=== PATIENT | female | born 1975 | race Caucasian/White ===

== ENCOUNTER → 2016-11-17 | Outpatient (CLI) | payer OTHER | LOC: BMCIMAGING 14:52 | PROVIDERS: ATTEND Physician Assistant Medical | DX: J40 Bronchitis, not specified as acute or chronic (principal) ==

== ENCOUNTER → 2017-03-29 | Outpatient (CLI) | payer OTHER | LOC: CIMAGING 13:23 | PROVIDERS: ATTEND Internal Medicine Interventional Cardiology | DX: Z13.6 Encounter for screening for cardiovascular disorders (principal); Z82.49 Family history of ischemic heart disease and other diseases of the circulatory system; Z87.891 Personal history of nicotine dependence | CPT/HCPCS: 75571-PO ==

== ENCOUNTER 2018-11-08 21:06 | Emergency (ER) | payer OTHER ==
--- NOTE | 2018-11-08 21:37 | EDPHY ---
H & P Stated Complaint: N/V/ left sided abd pain since Wednesday Time Seen by Provider: 11/08/18 21:36 HPI/ROS: CHIEF COMPLAINT: Nausea, vomiting, and abdominal pain HISTORY OF PRESENT ILLNESS: This is a 43-year-old female with a history of IgG deficiency, undifferentiated autoimmune disease, coronary artery disease, pancreatitis, and reactive airway disease. She presents today after 5 days of nausea, vomiting, and abdominal pain. She describes the pain as a burning sensation. She is experiencing at in the midepigastrium in the left upper quadrant primarily. She is at the point where she can keep almost nothing down. She has a history of constipation and has not had a bowel movement since Wednesday. She had a small bowel movement on Wednesday, no blood. She has not had diarrhea. She is passing a small amount of flatus. Urine output is decreased; she denies dysuria, urgency or frequency. She notes that she has had waves of heat and flushing and also some chills. REVIEW OF SYSTEMS: A ten system review of systems was performed and is negative with the exception of the items mentioned in the HPI. Past medical history: 1. IgG deficiency 2. Undifferentiated autoimmune disorder 3. Coronary artery disease 4. Reactive airway disease 5. Pancreatitis Social history: She lives with her father. She is disabled. No tobacco use. General Appearance: Alert. Vital signs reviewed. Blood pressure 162/90 at triage. Eyes: Pupils equal and round, no conjunctival injection, no discharge. Anicteric. ENT, Mouth: Mucous membranes are dry, no oropharyngeal erythema or edema. Neck: No lymphadenopathy, supple. Respiratory: Lungs are clear to auscultation; no wheezes, rales, or rhonchi. Cardiovascular: Regular rate and rhythm; no murmur, rub, or gallop. Gastrointestinal: Abdomen is soft and tender in the midepigastrium in the left upper quadrant, no guarding, no masses or organomegaly, bowel sounds normal. Skin: Warm and dry, no rashes on exposed skin, normal color. Back: Nontender to palpation over the thoracolumbar spine. No CVAT. Extremities: No lower extremity edema, no calf tenderness or swelling. Neurological: Alert and oriented. Moving all four extremities easily and equally. - Personal History LMP (Females 10-55): 15-21 Days Ago Current Tetanus/Diphtheria Vaccine: Yes - Medical/Surgical History Hx Asthma: No Hx Chronic Respiratory Disease: No Hx Diabetes: No Hx Cardiac Disease: Yes Hx Renal Disease: No Hx Cirrhosis: No Hx Alcoholism: No Hx HIV/AIDS: No Hx Splenectomy or Spleen Trauma: No Other PMH: autoimmune disease, CAD, IGG deficient - Social History Smoking Status: Smoker current status UNK Constitutional: Initial Vital Signs Temperature (C) 37.3 C 11/08/18 21:08 Heart Rate 82 11/08/18 21:08 Respiratory Rate 18 11/08/18 21:08 Blood Pressure 162/90 H 11/08/18 21:08 O2 Sat (%) 97 11/08/18 21:08 O2 Delivery Mode Room Air Allergies/Adverse Reactions: amoxicillin trihydrate [From Augmentin] Allergy (Mild, Verified 11/10/18 04:56) Rash potassium clavula *RETIRED-05/09/12 [From Augmentin] Allergy (Mild, Verified 04:56) Rash droperidol [From Inapsine] Allergy (Unknown, Verified 11/10/18 04:56) Anxiety prochlorperazine edisylate [From Compazine] Allergy (Unknown, Verified 11/10/18 04:56) Anxiety prochlorperazine maleate [From Compazine] Allergy (Unknown, Verified 11/10/18 04 :56) Anxiety trimethobenzamide HCl [From Tigan] Allergy (Unknown, Verified 11/10/18 04:56) Unknown Penicillins Allergy (Verified 11/10/18 04:56) Home Medications: Medication Instructions Recorded Atorvastatin Calcium [Lipitor 10 10 mg PO DAILY 02/12/12 mg (RX)] Albuterol [Proventil Inhaler HFA 2 puffs IH Q4H PRN 11/08/18 (*)] Escitalopram Oxalate [Lexapro] 10 mg PO DAILY 11/08/18 Fenofibrate 54 mg PO DAILY 11/08/18 Fluticasone Hfa 44 Mcg [Flovent 44 2 puffs IH BID 11/08/18 MCG Hfa MDI (*)] Thyroid,Pork [[place] Thyroid] 30 mg PO DAILY 11/08/18 Methadone HCl [Methadone HCl 10 mg 10 - 20 mg PO BID 11/10/18 (*)] Oxymetazoline HCl [Nasal 1 - 2 sprays NS DAILY PRN 11/10/18 Decongestant] Medical Decision Making ED Course/Re-evaluation: 43-year-old female, immune suppressed, who presents with 5 days of nausea, vomiting, and abdominal pain. No peritoneal signs on abdominal exam. She is not febrile, tachycardic, or hypotensive. In fact her blood pressure is elevated at 160 2/90 in triage. She has been able to take her methadone under thyroid medication. She has not taken other medications. Will check blood work including CBC, chemistries, LFTs, and lipase. IV normal saline administered. Patient re-evaluated at 10:30 p.m.. She under 2nd L of IV fluid. She has had Zofran in the past. She is on methadone head and over QT prolongation. She tells me she did not have problems with that in the past and after discussing this with her I have decided to place her on a threat monitoring analyst and give her 4 mg IV Zofran. I reviewed her blood work. Platelets are slightly low (they have been in the past). Otherwise her blood work is normal including liver function and lipase. I do not suspect pancreatitis or cholecystitis. I do not suspect SBO--she is passing flatus. She has not vomited since early this morning, but has not tried to eat anything today. Patient re-evaluated at 11:15 p.m.. She has not had any vomiting. She feels much better. She has tolerated ice chips. She will be discharged home in improved condition. Danger signs reviewed with her. Differential Diagnosis: Considered a differential diagnosis that includes but is not limited to pancreatitis, cholecystitis, appendicitis, gastritis. - Data Points Laboratory Results: Laboratory Results 11/08/18 22:01 11/08/18 22:01 Medications Given: Discontinued Medications Sodium Chloride (Ns) 1,000 mls @ 0 mls/hr IV EDNOW ONE; Wide Open PRN Reason: Protocol Stop: 11/08/18 21:49 Last Admin: 11/08/18 22:01 Dose: 1,000 mls Sodium Chloride (Ns) 1,000 mls @ 0 mls/hr IV EDNOW ONE; Wide Open PRN Reason: Protocol Stop: 11/08/18 22:00 Last Admin: 11/08/18 22:08 Dose: 1,000 mls Ondansetron HCl (Zofran) 4 mg IVP EDNOW ONE Stop: 11/08/18 22:43 Last Admin: 11/08/18 22:44 Dose: 4 mg Ondansetron HCl (Zofran) 4 mg IVP EDNOW ONE Stop: 11/08/18 22:43 Last Admin: 11/08/18 22:44 Dose: Not Given Departure - Departure Disposition: Home, Routine, Self-Care Clinical Impression: Abdominal pain, Vomiting Condition: Good Instructions: Acute Nausea and Vomiting (ED), Acute Abdominal Pain (ED) Referrals: Birttney Cobos MD [Primary Care Provider] - As per Instructions
[2018-11-08] MEDS ORDERED: NS 1,000 ML IV ONE ×2 (21:48→21:59)
[2018-11-08 22:14] LABS: PLATELET COUNT 146 10^3/uL (150-400)
[2018-11-08] MEDS ORDERED: ONDANSETRON 4 MG/2 ML VIAL ONE (22:41)
[2018-11-08] MEDS ORDERED: ONDANSETRON 4 MG/2 ML VIAL IVP ONE ×2 (22:42)
[2018-11-08 22:57] VITALS: BP 121/80
== END 2018-11-08 23:33 | disposition home or self-care (01) ==
DX: R10.9 Unspecified abdominal pain (principal); R11.2 Nausea with vomiting, unspecified; E86.9 Volume depletion, unspecified
CPT/HCPCS: 96374; J2405

== ENCOUNTER 2018-11-10 04:49 | Inpatient (IN) | payer OTHER ==
[2018-11-10] MEDS ORDERED: NS 1,000 ML IV ONE ×2 (05:01)
[2018-11-10] MEDS ORDERED: FAMOTIDINE 20 MG/2 ML SDV IVP ONE (05:04)
--- NOTE | 2018-11-10 05:06 | EDPHY ---
H & P Stated Complaint: n/v/, dehydrated, recently seen, can't eat/drink, dizzy Time Seen by Provider: 11/10/18 05:05 HPI/ROS: HPI CHIEF COMPLAINT: Nausea, vomiting, abdominal pain, recent ER visit HISTORY OF PRESENT ILLNESS: Patient is a 43-year-old female significant mass medical history for IgG deficiency, presents emergency room nausea and abdominal pain. She was seen here few days ago with nausea vomiting abdominal pain at that time she had rather unremarkable workup and felt better after fluids and nausea medicine. She states since being discharged she really has not had anything to eat or drink. She has been lying in bed. States she has been sleeping developing ongoing abdominal pain she complains of left-sided mid and lower abdominal pain. She denies any diarrhea, denies chest pain or shortness of breath. States she has ongoing nausea without vomiting. Sometimes dry heaves. Patient reports she is unable to tolerate anything by mouth as she gets nauseous and vomits. She is not having to eat or drink she reports 24 hr. Past Medical History: Significant past medical history for IgG deficiency, autoimmune disorder nonspecific, coronary artery disease, reactive airway disease, pancreatitis Past Surgical History: Has had multiple abdominal surgeries including gangrenous cholecystitis leading to septic shock, hepatic abscesses, multiple exploratory laparotomies Social History: Denies drugs alcohol tobacco. Unemployed. Family History: Noncontributory ROS REVIEW OF SYSTEMS: 10 Systems were reviewed and negative with the exception of the elements mentioned in the history of present illness. Exam Constitutional triage nursing summary reviewed, vital signs reviewed, awake/ alert. Vital signs stable. Eyes normal conjunctivae and sclera, EOMI, PERRLA. HENT normal inspection, atraumatic, moist mucus membranes, no epistaxis, neck supple/ no meningismus, no raccoon eyes. Respiratory clear to auscultation bilaterally, normal breath sounds, no respiratory distress, no wheezing. Cardiovascular rate normal, regular rhythm, no murmur, no edema, distal pulses normal. Gastrointestinal mild tender palpation left lower quadrant, left mid abdomen, no peritoneal signs, no rebound, no guarding, normal bowel sounds, no distension , no pulsatile mass. Genitourinary no CVA tenderness. Musculoskeletal no midline vertebral tenderness, full range of motion, no calf swelling, no tenderness of extremities, no meningismus, good pulses, neurovascularly intact. Skin pink, warm, & dry, no rash, skin atraumatic. Neurologic awake, alert and oriented x 3, AAOx3, moves all 4 extremities equally, motor intact, sensory intact, CN II-XII intact, normal cerebellar, normal vision, normal speech. Psychiatric normal mood/affect. Heme/Lymph/Immune no lymphadenopathy. Differential Diagnosis: Differential diagnosis includes but is not limited to and in no particular order: Bowel obstruction, appendicitis, gallbladder disease, diverticulitis, colitis, enteritis, perforated viscus, gastritis, GERD , esophagitis, urinary tract infection, pyelonephritis, kidney stones Medical Decision Making: Plan for this patient IV establishment IV fluid bolus , IV Pepcid for GI upset, basic labs, CT scan abdomen pelvis with IV contrast to help delineate her left-sided abdominal pain. Re-evaluation: 0641: Patient back from CT at this time. She has IV fluids. IV Pepcid and IV Ativan 0.5 mg for nausea. I did give her a 1 g of Tylenol for pain control however she declined this. Back from CT I have ordered her IV fentanyl 50 mcg for further pain control. Awaiting CT results. Labs reviewed. They are reassuring. However pending on CT results. Patient received IV fentanyl for pain control. She has left-sided abdominal pain. Will re-evaluate. CT scan abdomen pelvis with IV contrast CT scan results faxed to me by [facility] time 7:03 a.m., this shows no evidence of bowel obstruction no evidence of pneumoperitoneum unchanged splenomegaly Presumed hernia repair material in the anterior abdominal wall moderate colonic stool burden may reflect mild constipation nonobstructing renal stones Otherwise unremarkable CT scan results please see full report from [facility]. 0731: I did update the patient about her lab work and CT results. She is asking for more pain medicine I wrote her another 50 mcg IV fentanyl, also complaining of nausea I have written her 6.25 mg IV Phenergan and 25 mg IV Benadryl as she states that she can take Phenergan but needs Benadryl with it. She has already received 2 L of fluid. Plan for hospital admission for ongoing nausea, abdominal pain. It is possible abdominal pain is from constipation. She has agreed for hospital admission and would prefer this. I did update her, her and father at bedside about off her test results of labs. They are comfortable being admitted. Consult the hospitalist service Dr. Dempsey Who agrees to admit. UA Pending still. 0800AM: Patient re-evalauted after IV fluids, pain medication IV fentanyl, Iv Phenergan, benadryl, and is feeling much better. She denies CP or SOB. Denies Abdominal pain at this time. Abdomen is soft nt. Nd. Not vomiting. She is comfortable at this time. Updated on plan for admission. she agrees for admission. Source: Patient - Personal History LMP (Females 10-55): Irregular Current Tetanus Diphtheria and Acellular Pertussis (TDAP): Yes - Medical/Surgical History Hx Asthma: No Hx Chronic Respiratory Disease: No Hx Diabetes: No Hx Cardiac Disease: Yes Hx Renal Disease: No Hx Cirrhosis: No Hx Alcoholism: No Hx HIV/AIDS: No Hx Splenectomy or Spleen Trauma: No Other PMH: autoimmune disease, CAD, IGG deficient - Social History Smoking Status: Smoker current status UNK Constitutional: Initial Vital Signs Temperature (C) 37.1 C 11/10/18 04:54 Heart Rate 83 11/10/18 04:54 Respiratory Rate 16 11/10/18 04:54 Blood Pressure 113/75 11/10/18 04:54 O2 Sat (%) 100 11/10/18 04:54 O2 Delivery Mode Nasal Cannula O2 (L/minute) 2 Allergies/Adverse Reactions: sesame oil [Sesame] Allergy (Intermediate, Verified 11/10/18 18:48) GI upset wheat Allergy (Intermediate, Verified 11/10/18 18:48) GI upset almond Allergy (Mild, Verified 11/10/18 18:48) GI upset amoxicillin trihydrate [From Augmentin] Allergy (Mild, Verified 11/10/18 04:56) Rash corn Allergy (Mild, Verified 11/10/18 18:48) GI upset peanut Allergy (Mild, Verified 11/10/18 16:55) GI upset potassium clavula *RETIRED-05/09/12 [From Augmentin] Allergy (Mild, Verified 04:56) Rash soy Allergy (Mild, Verified 11/10/18 18:48) GI upset droperidol [From Inapsine] Allergy (Unknown, Verified 11/10/18 04:56) Anxiety prochlorperazine edisylate [From Compazine] Allergy (Unknown, Verified 11/10/18 04:56) Anxiety prochlorperazine maleate [From Compazine] Allergy (Unknown, Verified 11/10/18 04 :56) Anxiety trimethobenzamide HCl [From Tigan] Allergy (Unknown, Verified 11/10/18 04:56) Unknown Penicillins Allergy (Verified 11/10/18 04:56) Home Medications: Medication Instructions Recorded Atorvastatin Calcium [Lipitor 10 10 mg PO DAILY 02/12/12 mg (*)] Albuterol [Proventil Inhaler HFA 2 puffs IH Q4H PRN 11/08/18 (*)] Escitalopram Oxalate [Lexapro 10 10 mg PO DAILY 11/08/18 MG] Fenofibrate 54 mg PO DAILY 11/08/18 Fluticasone Hfa 44 Mcg [Flovent 44 2 puffs IH BID 11/08/18 MCG Hfa MDI (*)] Thyroid,Pork [[place] Thyroid] 30 mg PO DAILY 11/08/18 Methadone HCl [Methadone HCl 10 mg 10 - 20 mg PO BID 11/10/18 (*)] Oxymetazoline HCl [Nasal 1 - 2 sprays NS DAILY PRN 11/10/18 Decongestant] Polyethylene Glycol 3350 [Miralax 17 gm PO BID pkt 11/15/18 17 gm (*)] Promethazine HCl [Phenergan 25mg 6.25 - 12.5 mg PO Q6HRS PRN #12 tab 11/15/18 (*)] Promethazine HCl [Phenergan Rectal] 25 mg NM Q6HRS PRN #30 suppr 11/15/18 Medical Decision Making - Data Points Laboratory Results: Laboratory Results 11/11/18 05:50 11/11/18 05:50 Medications Given: Discontinued Medications Acetaminophen (Tylenol) 1,000 mg PO EDNOW ONE Stop: 11/10/18 06:02 Last Admin: 11/10/18 06:43 Dose: Not Given Atorvastatin Calcium (Lipitor) 10 mg PO DAILY BETTYE Stop: 05/11/19 08:59 Last Admin: 11/15/18 10:58 Dose: 10 mg Bisacodyl (Dulcolax Rectal) 10 mg NM DAILY PRN; Protocol PRN Reason: Constipation Stop: 05/10/19 12:26 Last Admin: 11/11/18 13:06 Dose: 10 mg Diphenhydramine HCl (Benadryl Injection) 25 mg IVP EDNOW ONE Stop: 11/10/18 07:29 Last Admin: 11/10/18 07:36 Dose: 25 mg Diphenhydramine HCl (Benadryl Injection) 6.25 mg IVP Q6H PRN PRN Reason: ALLERGIC REACTION Stop: 05/09/19 18:49 Last Admin: 11/14/18 18:08 Dose: 6.25 mg Enoxaparin Sodium (Lovenox) 40 mg SC DAILY [facility] Stop: 05/10/19 08:59 Last Admin: 11/15/18 10:58 Dose: 40 mg Escitalopram Oxalate (Lexapro) 10 mg PO DAILY [facility] Stop: 05/11/19 08:59 Last Admin: 11/15/18 10:58 Dose: 10 mg Famotidine (Pepcid) 20 mg IVP EDNOW ONE Stop: 11/10/18 05:05 Last Admin: 11/10/18 05:44 Dose: 20 mg Fenofibrate (Tricor) 48 mg PO DAILY [facility] Stop: 05/11/19 08:59 Last Admin: 11/15/18 10:58 Dose: 48 mg Fentanyl (Sublimaze) 50 mcg IVP EDNOW ONE Stop: 11/10/18 06:39 Last Admin: 11/10/18 06:42 Dose: 50 mcg Fentanyl (Sublimaze) 50 mcg IVP EDNOW ONE Stop: 11/10/18 07:28 Last Admin: 11/10/18 07:39 Dose: 50 mcg Fluticasone Propionate (Flovent Hfa) 2 puffs IH BID [facility] Stop: 05/10/19 20:59 Last Admin: 11/15/18 08:36 Dose: 2 puffs Hydromorphone HCl (Dilaudid) 0.4 - 0.6 mg IVP Q4HRS PRN PRN Reason: Pain, Severe Stop: 11/21/18 12:31 Last Admin: 11/13/18 05:05 Dose: 0.4 mg Hydromorphone HCl (Dilaudid) 2 - 4 mg PO Q4HRS PRN PRN Reason: Pain, Moderate Stop: 11/22/18 11:42 Last Admin: 11/15/18 11:04 Dose: 4 mg Sodium Chloride (Ns) 1,000 mls @ 0 mls/hr IV EDNOW ONE; Wide Open PRN Reason: Protocol Stop: 11/10/18 05:02 Last Admin: 11/10/18 05:45 Dose: 1,000 mls Sodium Chloride (Ns) 1,000 mls @ 0 mls/hr IV EDNOW ONE; Wide Open PRN Reason: Protocol Stop: 11/10/18 05:02 Last Admin: 11/10/18 05:45 Dose: 1,000 mls Sodium Chloride (Ns) 1,000 mls @ 75 mls/hr IV CONT BETTYE Stop: 05/09/19 09:59 Last Admin: 11/12/18 02:08 Dose: 1,000 mls Magnesium Sulfate (Magnesium Sulf 2 Gm (Premix)) 50 mls @ 50 mls/hr IV ONCE ONE Stop: 11/11/18 13:32 Last Admin: 11/11/18 13:18 Dose: 50 mls Lorazepam (Ativan Injection) 0.5 mg IVP EDNOW ONE Stop: 11/10/18 06:03 Last Admin: 11/10/18 06:05 Dose: 0.5 mg Magnesium Hydroxide (Milk Of Magnesia) 30 ml PO DAILY PRN; Protocol PRN Reason: Constipation Stop: 05/10/19 12:26 Last Admin: 11/11/18 13:06 Dose: 30 ml Magnesium Hydroxide (Milk Of Magnesia) 30 ml PO BID BETTYE PRN Reason: Protocol Stop: 05/11/19 20:59 Last Admin: 11/15/18 10:58 Dose: 30 ml Methadone HCl (Methadone Hcl) 10 - 20 mg PO BID BETTYE Stop: 11/21/18 12:59 Last Admin: 11/12/18 09:31 Dose: 10 mg Methadone HCl (Methadone Hcl) 20 mg PO BID BETTYE Stop: 11/21/18 12:59 Last Admin: 11/15/18 10:58 Dose: 20 mg Morphine Sulfate (Morphine) 1 - 2 mg IVP Q1HR PRN PRN Reason: Pain, Breakthrough Stop: 11/20/18 09:51 Last Admin: 11/11/18 10:36 Dose: 2 mg Ondansetron HCl (Zofran) 4 mg IVP Q4HRS PRN PRN Reason: Nausea/Vomiting Stop: 05/09/19 09:51 Last Admin: 11/14/18 03:51 Dose: 4 mg Ondansetron HCl (Zofran Odt) 4 mg PO Q4HRS PRN PRN Reason: Nausea/Vomiting, Use 1st Stop: 05/09/19 09:51 Last Admin: 11/15/18 10:40 Dose: 4 mg Pantoprazole Sodium (Protonix) 40 mg IVP BID [facility] Stop: 05/10/19 12:44 Last Admin: 11/14/18 09:22 Dose: 40 mg Pantoprazole Sodium (Protonix) 40 mg PO BID [facility] Stop: 05/13/19 20:59 Last Admin: 11/15/18 10:59 Dose: 40 mg Polyethylene Glycol (Miralax) 17 gm PO DAILY PRN; Protocol PRN Reason: Constipation, patient prefers Stop: 05/10/19 12:26 Last Admin: 11/11/18 13:06 Dose: 17 gm Polyethylene Glycol (Miralax) 17 gm PO BID [facility] PRN Reason: Protocol Stop: 05/13/19 15:54 Last Admin: 11/15/18 10:57 Dose: 17 gm Promethazine HCl (Phenergan) 6.25 mg IVP ONCE ONE Stop: 11/10/18 07:29 Last Admin: 11/10/18 07:37 Dose: 6.25 mg Promethazine HCl (Phenergan) 6.25 - 12.5 mg IVP Q6HRS PRN PRN Reason: Nausea/Vomiting, Use 2nd Stop: 05/09/19 09:51 Last Admin: 11/14/18 17:50 Dose: 12.5 mg Promethazine HCl (Phenergan) 6.25 - 12.5 mg PO Q6HRS PRN PRN Reason: Nausea/Vomiting, Use 1st Stop: 05/11/19 11:44 Last Admin: 11/15/18 09:49 Dose: 12.5 mg Senna/Docusate Sodium (Senokot-S) 1 - 2 tab PO BID [facility] PRN Reason: Protocol Stop: 05/10/19 20:59 Last Admin: 11/15/18 10:57 Dose: 2 tab Sucralfate (Carafate Suspension) 1 gm PO ACHS [facility] Stop: 05/12/19 20:59 Last Admin: 11/15/18 10:58 Dose: 1 gm Throat Lozenges (Cepacol Lozenge) 1 ea PO Q2 PRN PRN Reason: Sore Throat Stop: 05/09/19 23:29 Last Admin: 11/10/18 23:45 Dose: 1 ea Thyroid ([place] Thyroid) 30 mg PO DAILY06 BETTYE Stop: 05/11/19 05:59 Last Admin: 11/15/18 06:27 Dose: 30 mg Departure - Departure Disposition: [facility] Acute Clinical Impression: Abdominal pain Qualifiers: Abdominal location: left lower quadrant Qualified Code(s): R10.32 - Left lower quadrant pain Vomiting Qualifiers: Vomiting type: unspecified Vomiting Intractability: non-intractable Nausea presence: with nausea Qualified Code(s): R11.2 - Nausea with vomiting, unspecified Condition: Good
[2018-11-10 05:54] LABS: PLATELET COUNT 116 10^3/uL (150-400)
[2018-11-10] MEDS ORDERED: ACETAMINOPHEN 500 MG TAB PO ONE (06:01)
[2018-11-10] MEDS ORDERED: LORazepam 2 MG/ML INJ IVP ONE (06:02)
[2018-11-10] MEDS ORDERED: IOPAMIDOL (ISOVUE-300) 100 ML BTL ONE (06:14)
[2018-11-10] MEDS ORDERED: fentaNYL 100 MCG/2 ML INJ IVP ONE ×2 (06:38→07:27)
[2018-11-10] MEDS ORDERED: PROMETHAZINE HCL 25 MG/ML INJ IVP ONE (07:28)
--- NOTE | 2018-11-10 09:36 | PDGENHP ---
History and Physical - Chief Complaint Nausea vomiting - History of Present Illness Patient is a 43-year-old female with past medical history of mixed connective tissue disorder, chronic pain on methadone, reactive airway disease, hypothyroid , hyperlipidemia who presented the emergency room with abdominal pain along with nausea and vomiting for the last 4 days. She originally presented to the emergency room 2 days ago with the same symptoms was given IV fluids, and Zofran and felt better and so was discharged home. She said she transiently felt better but by morning was not able to take anything by mouth again. She has had unrelenting nausea and vomiting and mid epigastric abdominal pain since that time. She has not had diarrhea. She has not had bloody or black emesis she, or black or bloody stools. She cannot remember when her last bowel movement was. Nothing seems to make her abdominal pain better or worse. She denied any fevers chills cough headache dizziness dysuria hematuria or any other symptoms. History Information - Allergies/Home Medication List Allergies/Adverse Reactions: amoxicillin trihydrate [From Augmentin] Allergy (Mild, Verified 11/10/18 04:56) Rash potassium clavula *RETIRED-05/09/12 [From Augmentin] Allergy (Mild, Verified 04:56) Rash droperidol [From Inapsine] Allergy (Unknown, Verified 11/10/18 04:56) Anxiety prochlorperazine edisylate [From Compazine] Allergy (Unknown, Verified 11/10/18 04:56) Anxiety prochlorperazine maleate [From Compazine] Allergy (Unknown, Verified 11/10/18 04 :56) Anxiety trimethobenzamide HCl [From Tigan] Allergy (Unknown, Verified 11/10/18 04:56) Unknown Penicillins Allergy (Verified 11/10/18 04:56) Home Medications: Atorvastatin Calcium [Lipitor 10 mg (RX)] 10 mg PO DAILY 02/12/12 [Last Taken ] Albuterol [Proventil Inhaler HFA (*)] 2 puffs IH Q4H PRN 11/08/18 [Last Taken ] Escitalopram Oxalate [Lexapro] 10 mg PO DAILY 11/08/18 [Last Taken 11/04/18] Fenofibrate 54 mg PO DAILY 11/08/18 [Last Taken 11/04/18] Fluticasone Hfa 44 Mcg [Flovent 44 MCG Hfa MDI (*)] 2 puffs IH BID 11/08/18 [ Last Taken 11/09/18] Thyroid,Pork [[place] Thyroid] 30 mg PO DAILY 11/08/18 [Last Taken 11/08/18] Methadone HCl [Methadone HCl 10 mg (*)] 10 - 20 mg PO BID 11/10/18 [Last Taken 11/09/18 10:00] Oxymetazoline HCl [Nasal Decongestant] 1 - 2 sprays NS DAILY PRN 11/10/18 [Last Taken Unknown] I have personally reviewed and updated: family history, medical history, social history, surgical history - Past Medical History Additional medical history: Undifferentiated autoimmune disorder, RAD, chronic pain, HLD, Hypothyroid. - Surgical History Additional surgical history: multiple abdominal surgeries. cholecystectomy. ribs removed - Family History Positive for: non-pertinent - Social History Smoking Status: Former smoker Alcohol Use: None Drug Use: Marijuana Review of Systems Review of Systems: ROS: 10pt was reviewed & negative except for what was stated in HPI & below Physical Exam Physical Exam: Temp Pulse Resp BP Pulse Ox 37.1 C 89 14 100/58 L 99 11/10/18 04:54 11/10/18 06:44 11/10/18 06:44 11/10/18 06:44 11/10/18 06:44 Constitutional: no apparent distress, appears nourished, not in pain Eyes: PERRL, anicteric sclera, EOMI Ears, Nose, Mouth, Throat: moist mucous membranes, hearing normal, ears appear normal, no oral mucosal ulcers Cardiovascular: regular rate and rhythym, no murmur, rub, or gallop, No edema Respiratory: no respiratory distress, no rales or rhonchi, clear to auscultation Gastrointestinal: normoactive bowel sounds, soft, non-tender abdomen, no palpable masses Genitourinary: no bladder fullness, no bladder tenderness Skin: warm, normal color, no rashes or abrasions, no fluctuance, no induration, No mottled Musculoskeletal: full muscle strength, no muscle tenderness, normal joint ROM, no joint effusions Psychiatric: interacting appropriately, not anxious, not encephalopathic, thought process linear Lymph, Heme, Immunologic: no cervical LAD, no supraclavicular LAD Lab Data & Imaging Review 11/10/18 05:45 11/10/18 05:45 WBC 6.91 10^3/uL (3.80-9.50) 11/10/18 05:45 RBC 3.96 10^6/uL (4.18-5.33) L 11/10/18 05:45 Hgb 11.7 g/dL (12.6-16.3) L 11/10/18 05:45 Hct 32.8 % (38.0-47.0) L 11/10/18 05:45 MCV 82.8 fL (81.5-99.8) 11/10/18 05:45 MCH 29.5 pg (27.9-34.1) 11/10/18 05:45 MCHC 35.7 g/dL (32.4-36.7) 11/10/18 05:45 RDW 12.6 % (11.5-15.2) 11/10/18 05:45 Plt Count 116 10^3/uL (150-400) L 11/10/18 05:45 MPV 8.9 fL (8.7-11.7) 11/10/18 05:45 Neut % (Auto) 80.0 % (39.3-74.2) H 11/10/18 05:45 Lymph % (Auto) 15.3 % (15.0-45.0) 11/10/18 05:45 Dubois % (Auto) 2.6 % (4.5-13.0) L 11/10/18 05:45 Eos % (Auto) 1.3 % (0.6-7.6) 11/10/18 05:45 Baso % (Auto) 0.4 % (0.3-1.7) 11/10/18 05:45 Nucleat RBC Rel Count 0.0 % (0.0-0.2) 11/10/18 05:45 Absolute Neuts (auto) 5.52 10^3/uL (1.70-6.50) 11/10/18 05:45 Absolute Lymphs (auto) 1.06 10^3/uL (1.00-3.00) 11/10/18 05:45 Absolute Monos (auto) 0.18 10^3/uL (0.30-0.80) L 11/10/18 05:45 Absolute Eos (auto) 0.09 10^3/uL (0.03-0.40) 11/10/18 05:45 Absolute Basos (auto) 0.03 10^3/uL (0.02-0.10) 11/10/18 05:45 Absolute Nucleated RBC 0.00 10^3/uL (0-0.01) 11/10/18 05:45 Immature Gran % 0.4 % (0.0-1.1) 11/10/18 05:45 Immature Gran # 0.03 10^3/uL (0.00-0.10) 11/10/18 05:45 Sodium 139 mEq/L (135-145) 11/10/18 05:45 Potassium 4.0 mEq/L (3.5-5.2) 11/10/18 05:45 Chloride 109 mEq/L (97-110) 11/10/18 05:45 Carbon Dioxide 17 mEq/l (22-31) L 11/10/18 05:45 Anion Gap 13 mEq/L (6-14) 11/10/18 05:45 BUN 16 mg/dL (7-23) 11/10/18 05:45 Creatinine 0.8 mg/dL (0.6-1.0) 11/10/18 05:45 Estimated GFR > 60 11/10/18 05:45 Glucose 73 mg/dL (70-100) 11/10/18 05:45 Calcium 8.8 mg/dL (8.5-10.4) 11/10/18 05:45 Total Bilirubin 1.3 mg/dL (0.1-1.4) 11/10/18 05:45 Conjugated Bilirubin 0.6 mg/dL (0.0-0.5) H 11/10/18 05:45 Unconjugated Bilirubin 0.7 mg/dL (0.0-1.1) 11/10/18 05:45 AST 25 IU/L (14-46) 11/10/18 05:45 ALT 36 IU/L (9-52) 11/10/18 05:45 Alkaline Phosphatase 66 IU/L (38-126) 11/10/18 05:45 Total Protein 6.0 g/dL (6.3-8.2) L 11/10/18 05:45 Albumin 4.0 g/dL (3.5-5.0) 11/10/18 05:45 Lipase 47 IU/L (23-300) 11/10/18 05:45 Beta HCG, Qual NEGATIVE 11/10/18 05:45 Urine Color PALE YELLOW 11/10/18 07:15 Urine Appearance MODERATELY TURBID 11/10/18 07:15 Urine pH 5.0 (5.0-7.5) 11/10/18 07:15 Ur Specific [place] 1.017 (1.002-1.030) 11/10/18 07:15 Urine Protein NEGATIVE (NEGATIVE) 11/10/18 07:15 Urine Ketones 1+ (NEGATIVE) H 11/10/18 07:15 Urine Blood NEGATIVE (NEGATIVE) 11/10/18 07:15 Urine Nitrate NEGATIVE (NEGATIVE) 11/10/18 07:15 Urine Bilirubin NEGATIVE (NEGATIVE) 11/10/18 07:15 Urine Urobilinogen NEGATIVE EU (0.2-1.0) 11/10/18 07:15 Ur Leukocyte Esterase NEGATIVE (NEGATIVE) 11/10/18 07:15 Urine Glucose NEGATIVE (NEGATIVE) 11/10/18 07:15 Assessment & Plan Assessment: Abdominal pain (Acute)-may be secondary to impaired mobility in the setting of mixed connective tissue disease. She does have a mildly enlarged spleen and capsular stretch may be contributing to her abdominal pain as well. I reviewed the CT scan which showed no overt colitis and aside from a adrenal adenoma and mildly enlarged spleen no other abnormalities. -IV fluids -clear liquid diet -pain medication Vomiting (Acute)- possibly secondary to viral illness, or impaired gastric mobility in the setting of mixed connective tissue disorder. -clears -GI pathogen panel -antiemetics -IV fluids MCTD- for which she takes methadone. Once dose is confirmed continue with this here. Reactive airway disease- albuterol p.r.n. Hyperlipidemia- hold for now. Restart on discharge Hypothyroid- continue [place]. Check TSH Prophylaxis- SCDs and heparin Fluids- intravenous saline Electrolytes- within normal limits Nutrition- clears Cor- full Dispo- observation for intractable nausea vomiting and abdominal pain.
[2018-11-10] MEDS ORDERED: ACETAMINOPHEN 325 MG TAB PO PRN (09:52)
[2018-11-10] MEDS ORDERED: ALBUTEROL 60 PUFFS/8 GM MDI IH PRN (09:52)
[2018-11-10] MEDS: NS 1,000 ML IV SCH ×2 (11:09→23:45)
[2018-11-10] MEDS: ONDANSETRON DISINTEGRATING 4 MG TAB PO PRN (14:00)
[2018-11-10] MEDS: ONDANSETRON 4 MG/2 ML VIAL IVP PRN (16:26)
[2018-11-10] MEDS: PROMETHAZINE HCL 25 MG/ML INJ IVP PRN (19:09)
[2018-11-10] MEDS ORDERED: CEPACOL LOZENGE PO PRN (23:30)
[2018-11-11] MEDS: ONDANSETRON 4 MG/2 ML VIAL IVP PRN ×3 (01:09→13:05)
[2018-11-11 06:20] LABS: PLATELET COUNT 115 10^3/uL (150-400)
[2018-11-11] MEDS: PROMETHAZINE HCL 25 MG/ML INJ IVP PRN ×2 (08:39→17:20)
[2018-11-11] MEDS: ENOXAPARIN 40 MG/0.4 ML SYR SC SCH (08:40)
--- NOTE | 2018-11-11 10:13 | ASMTCMCOM ---
CM Note CM Note Notes: Pt is a 43 y/o female admitted for abdominal pain and nausea/vomiting. Pt is on methadone for pain control. Pt will most likely d/c independent when medically stable. No therapies ordered at this time. CM available for changes. Plan: Independent Date Signed: 11/11/2018 10:12 AM Electronically Signed By:LEONARD Gomez
--- NOTE | 2018-11-11 11:38 | CPEKG ---
Test Reason : OPEN Blood Pressure : / mmHG Vent. Rate : 080 BPM Atrial Rate : 080 BPM P-R Int : 170 ms QRS Dur : 080 ms QT Int : 354 ms P-R-T Axes : 051 064 040 degrees QTc Int : 409 ms Sinus rhythm Confirmed by David Flynn ([id number]) on 11/11/2018 11:38:02 AM Referred By: Arnold Dempsey Confirmed By:David Flynn
[2018-11-11] MEDS ORDERED: BISACODYL 10 MG SUPP PR PRN (12:27)
[2018-11-11] MEDS ORDERED: MAGNESIUM HYDROXIDE 30 ML UDCUP PO PRN (12:27)
[2018-11-11] MEDS ORDERED: POLYETHYLENE GLYCOL 3350 17 GM PKT PO PRN (12:27)
[2018-11-11] MEDS ORDERED: LACTULOSE 20 GM/30 ML UDCUP PO PRN (12:27)
[2018-11-11] MEDS ORDERED: MAGNESIUM SULF 2 GM/WATER 50 ML IV ONE (12:33)
[2018-11-11] MEDS ORDERED: ALBUTEROL 60 PUFFS/8 GM MDI IH PRN (12:47)
[2018-11-11] MEDS ORDERED: OXYMETAZOLINE 30 ML NASAL SPRAY NS PRN (12:47)
--- NOTE | 2018-11-11 12:48 | HOSPPROG ---
Hospitalist Progress Note Assessment/Plan: # abdominal pain, N/V - she has had multiple episodes of this over the years - CT without clear etiology, labs ok - will plan another day of conservative treatment - add protonix, address constipation - cont IVF, pain control - if still persistent, she will likely need inpatient EGD # MCTD - not currently following with rheum # chronic pain - continue methadone # HLD - lipitor Subjective: still with N/V/abd pain Objective: Vital Signs Temp Pulse Resp BP Pulse Ox 37.1 C 61 14 104/64 99 11/11/18 11:35 11/11/18 11:35 11/11/18 11:35 11/11/18 11:35 11/11/18 11:35 Laboratory Results 11/11/18 05:50 11/11/18 05:50 11/10/18 11/11/18 11/12/18 05:59 05:59 05:59 Intake Total 2550 Output Total 1100 Balance 1450 chart reviewed discussed with Dr Lopez CT reviewed - Physical Exam Constitutional: uncomfortable Cardiovascular: regular rate and rhythym, no murmur, rub, or gallop Respiratory: no respiratory distress, no rales or rhonchi, clear to auscultation Gastrointestinal: normoactive bowel sounds, other (soft, diffuse TTP), No putnam 's sign, No guarding, No rebound ICD10 Worksheet Patient Problems: Problems Problem Status Onset Abdominal pain Acute Vomiting Acute
[2018-11-11] MEDS: NS 1,000 ML IV SCH (13:05)
[2018-11-11] MEDS: HYDROmorphONE/DILAUDID 1 MG/ML INJ IVP PRN ×2 (13:05→17:21)
[2018-11-11] MEDS: PANTOPRAZOLE SODIUM 40 MG VIAL IVP SCH ×2 (13:05→20:44)
--- NOTE | 2018-11-11 14:03 | PDMN ---
Medical Necessity Medical necessity: MCG M05 abd pain undg: A-1 days: 43yoF with abd dash, N/V, X 2 days seen in ED 2 days ago with similar symptoms - returned unable to tolerate PO., status changed to INPT 11/11/18 for inability to maintain PO ongoing abd pain, N/V, > 2Mn. further monitoring , eval and tx needed. pt still receiving IVF, IV antiemetic's, IV Protonix, IV benedryl IV dilaudid ,
[2018-11-11] MEDS: METHADONE HCL 10 MG TAB PO SCH ×2 (14:34→20:44)
[2018-11-11] MEDS: SENNOSIDES/DOCUSATE SODIUM TAB PO SCH (20:44)
[2018-11-11] MEDS: ONDANSETRON DISINTEGRATING 4 MG TAB PO PRN (21:10)
[2018-11-11] MEDS: FLUTICASONE HFA 44 MCG MDI IH SCH (21:28)
[2018-11-12] MEDS: NS 1,000 ML IV SCH (02:08)
[2018-11-12] MEDS: HYDROmorphONE/DILAUDID 1 MG/ML INJ IVP PRN ×4 (04:06→23:19)
[2018-11-12] MEDS: ONDANSETRON DISINTEGRATING 4 MG TAB PO PRN (04:10)
[2018-11-12] MEDS ORDERED: OXYCODONE/APAP 5/325 TAB PO PRN (04:42)
[2018-11-12] MEDS: THYROID 60 MG TAB PO SCH (05:41)
[2018-11-12] MEDS: PROMETHAZINE HCL 25 MG/ML INJ IVP PRN ×4 (06:05→23:30)
[2018-11-12 08:52] LABS: PLATELET COUNT 108 10^3/uL (150-400)
[2018-11-12] MEDS: FLUTICASONE HFA 44 MCG MDI IH SCH ×2 (09:13→20:38)
[2018-11-12] MEDS: PANTOPRAZOLE SODIUM 40 MG VIAL IVP SCH ×2 (09:30→20:23)
[2018-11-12] MEDS: FENOFIBRATE 48 MG TAB PO SCH (09:30)
[2018-11-12] MEDS: METHADONE HCL 10 MG TAB PO SCH ×2 (09:31→20:31)
[2018-11-12] MEDS: ESCITALOPRAM OXALATE 10 MG TAB PO SCH (09:31)
[2018-11-12] MEDS: ENOXAPARIN 40 MG/0.4 ML SYR SC SCH (09:32)
[2018-11-12] MEDS: SENNOSIDES/DOCUSATE SODIUM TAB PO SCH ×2 (09:32→20:24)
[2018-11-12] MEDS: ATORVASTATIN CALCIUM 10 MG TAB PO SCH (09:33)
--- NOTE | 2018-11-12 20:21 | HOSPPROG ---
Hospitalist Progress Note Assessment/Plan: # abdominal pain, N/V - she has had multiple episodes of this over the years - CT/labs without clear etiology - bowel protocols, IV protonix - cont IVF, pain control # MCTD - not currently following with rheum # chronic pain - continue chronic methadone #anemia -watch for stability FULL CODE DVT prophy-lovenox PCP Dr Patty Cobos DISPO > 2 mdnts as still requiring IV pain and antiemetic meds Subjective: Says still nauseous and scared to try oral medications. Says episodes like these seem random, unsure what provokes. IV dilaudid/benadryl/ phenergan her prev, but she is willing to try po med combo. Objective: Vital Signs Temp Pulse Resp BP Pulse Ox 99.7 F 69 16 123/74 H 94 11/12/18 19:20 11/12/18 19:20 11/12/18 19:20 11/12/18 19:20 11/12/18 19:20 Microbiology 11/11/18 14:40 Gastrointestinal Tract Panel (PCR) - Final Stool No Organism Detected By Pcr Laboratory Results 11/12/18 08:43 11/12/18 08:43 11/11/18 11/12/18 11/13/18 11:59 11:59 11:59 Output Total 2100 1000 Balance -2100 -1000 - Time Spent With Patient Time Spent with Patient: greater than 35 minutes (total floor time) Time Spent with Patient: Greater than 35 minutes spent on this patients care, greater than 50% of time spent counseling, educating, and coordinating care regarding the above mentioned plan. - Physical Exam Constitutional: no apparent distress, appears nourished Eyes: anicteric sclera, EOMI Ears, Nose, Mouth, Throat: moist mucous membranes, hearing normal Cardiovascular: regular rate and rhythym, No edema Respiratory: no respiratory distress, no rales or rhonchi, clear to auscultation Gastrointestinal: normoactive bowel sounds, soft, non-tender abdomen, tenderness (mild throughout), No guarding, No rebound, No distension Skin: warm, normal color Musculoskeletal: other (HIG[place]INS) Neurologic: other (non focal) Psychiatric: interacting appropriately, not anxious, not encephalopathic ICD10 Worksheet Patient Problems: Problems Problem Status Onset Abdominal pain Acute Vomiting Acute
[2018-11-12] MEDS: MAGNESIUM HYDROXIDE 30 ML UDCUP PO SCH (20:24)
[2018-11-12] MEDS: ONDANSETRON 4 MG/2 ML VIAL IVP PRN (23:12)
[2018-11-13] MEDS: ONDANSETRON 4 MG/2 ML VIAL IVP PRN (05:05)
[2018-11-13] MEDS: THYROID 60 MG TAB PO SCH (05:05)
[2018-11-13] MEDS: HYDROmorphONE/DILAUDID 1 MG/ML INJ IVP PRN (05:05)
[2018-11-13] MEDS: FLUTICASONE HFA 44 MCG MDI IH SCH ×2 (10:38→21:02)
[2018-11-13] MEDS: METHADONE HCL 10 MG TAB PO SCH ×2 (10:42→20:09)
[2018-11-13] MEDS: ESCITALOPRAM OXALATE 10 MG TAB PO SCH (10:44)
[2018-11-13] MEDS: PANTOPRAZOLE SODIUM 40 MG VIAL IVP SCH ×2 (10:54→20:10)
[2018-11-13] MEDS: PROMETHAZINE HCL 25 MG/ML INJ IVP PRN ×2 (10:55→17:12)
[2018-11-13] MEDS: ENOXAPARIN 40 MG/0.4 ML SYR SC SCH (10:56)
[2018-11-13] MEDS: MAGNESIUM HYDROXIDE 30 ML UDCUP PO SCH ×2 (11:05→20:09)
[2018-11-13] MEDS: SENNOSIDES/DOCUSATE SODIUM TAB PO SCH ×2 (11:06→20:09)
[2018-11-13] MEDS: FENOFIBRATE 48 MG TAB PO SCH (11:28)
[2018-11-13] MEDS: ATORVASTATIN CALCIUM 10 MG TAB PO SCH (11:28)
[2018-11-13] MEDS: HYDROmorphONE/DILAUDID 2 MG TAB PO PRN ×2 (11:28→17:14)
[2018-11-13] MEDS: ONDANSETRON DISINTEGRATING 4 MG TAB PO PRN ×2 (14:05→20:15)
[2018-11-13] MEDS: SUCRALFATE 1 GM/10 ML UDCUP PO SCH (20:09)
--- NOTE | 2018-11-14 01:24 | HOSPPROG ---
Hospitalist Progress Note Assessment/Plan: # abdominal pain, N/V - she has had multiple episodes of this over the years - CT/labs without clear etiology - bowel protocols, IV protonix - cont IVF, pain control -ADD CARAFATE -return to clear fluid diet # MCTD - not currently following with rheum # chronic pain - continue chronic methadone but I increased dose #anemia -watch for stability #thrombocytopenia, mild -watch for stability, bleeding FULL CODE DVT prophy-lovenox PCP Dr Patty Cobos DISPO > 2 mdnts as still requiring IV pain and antiemetic meds Subjective: Says pain about the same, didn't try po meds. Had a smoothie with no increase in pain reorted. No v/d/CP/sob. Objective: Vital Signs Temp Pulse Resp BP Pulse Ox 99 F 72 16 122/69 H 93 11/14/18 00:00 11/14/18 00:00 11/14/18 00:00 11/14/18 00:00 11/14/18 00:00 Laboratory Results 11/12/18 08:43 11/12/18 08:43 11/12/18 11/13/18 11/14/18 11:59 11:59 11:59 Intake Total 550 742 Output Total 2100 7750 1300 Balance -0642 -7485 -950 - Time Spent With Patient Time Spent with Patient: greater than 35 minutes (total floor time) Time Spent with Patient: Greater than 35 minutes spent on this patients care, greater than 50% of time spent counseling, educating, and coordinating care regarding the above mentioned plan. - Physical Exam Constitutional: no apparent distress, appears nourished Eyes: anicteric sclera, EOMI Ears, Nose, Mouth, Throat: moist mucous membranes, hearing normal Cardiovascular: regular rate and rhythym, No edema Respiratory: no respiratory distress, no rales or rhonchi, clear to auscultation Gastrointestinal: normoactive bowel sounds, tenderness (mild thoughout), No no palpable masses, No guarding, No rebound, No distension ICD10 Worksheet Patient Problems: Problems Problem Status Onset Abdominal pain Acute Vomiting Acute
[2018-11-14] MEDS: ONDANSETRON 4 MG/2 ML VIAL IVP PRN (03:51)
[2018-11-14] MEDS: HYDROmorphONE/DILAUDID 2 MG TAB PO PRN ×2 (03:51→16:06)
[2018-11-14] MEDS: THYROID 60 MG TAB PO SCH (06:10)
[2018-11-14] MEDS: FLUTICASONE HFA 44 MCG MDI IH SCH ×2 (08:23→21:25)
[2018-11-14] MEDS: PROMETHAZINE HCL 25 MG TAB PO PRN ×2 (09:22→16:06)
[2018-11-14] MEDS: PANTOPRAZOLE SODIUM 40 MG VIAL IVP SCH (09:22)
[2018-11-14] MEDS: ENOXAPARIN 40 MG/0.4 ML SYR SC SCH (09:22)
[2018-11-14] MEDS: SUCRALFATE 1 GM/10 ML UDCUP PO SCH ×4 (09:22→20:58)
[2018-11-14] MEDS: PROMETHAZINE HCL 25 MG/ML INJ IVP PRN ×2 (11:25→17:50)
[2018-11-14] MEDS: ESCITALOPRAM OXALATE 10 MG TAB PO SCH (12:19)
[2018-11-14] MEDS: FENOFIBRATE 48 MG TAB PO SCH (12:19)
[2018-11-14] MEDS: SENNOSIDES/DOCUSATE SODIUM TAB PO SCH ×2 (12:19→20:59)
[2018-11-14] MEDS: ATORVASTATIN CALCIUM 10 MG TAB PO SCH (12:19)
[2018-11-14] MEDS: METHADONE HCL 10 MG TAB PO SCH ×2 (12:19→20:59)
[2018-11-14] MEDS: MAGNESIUM HYDROXIDE 30 ML UDCUP PO SCH ×2 (12:20→20:59)
--- NOTE | 2018-11-14 15:55 | HOSPPROG ---
Hospitalist Progress Note Assessment/Plan: abdominal pain, N/V - she has had multiple episodes of this over the years - CT/labs without clear etiology, ? splenomegaly -wishes to advance diet dc IV pain meds aggressive bowel regimen MCTD - not currently following with rheum chronic pain - continue chronic methadone but I increased dose splenomegaly- mild, outpt follow u anemia -watch for stability thrombocytopenia, mild -watch for stability, bleeding FULL CODE DVT prophy-lovenox PCP Dr Patty Cobos DISPO > 2 mdnts as still requiring IV pain and antiemetic meds Subjective: pain improving. ct images reviewed/interp by me Objective: Vital Signs Temp Pulse Resp BP Pulse Ox 37.1 C 71 16 124/71 H 90 L 11/14/18 15:40 11/14/18 15:40 11/14/18 15:40 11/14/18 15:40 11/14/18 15:40 Laboratory Results 11/14/18 04:55 11/14/18 04:55 11/13/18 11/14/18 11/15/18 05:59 05:59 05:59 Intake Total 550 1192 Output Total 2400 1400 Balance -1850 -208 - Physical Exam Constitutional: no apparent distress, appears nourished Eyes: PERRL, anicteric sclera Ears, Nose, Mouth, Throat: moist mucous membranes, hearing normal Cardiovascular: regular rate and rhythym, no murmur, rub, or gallop, No tachycardia Respiratory: no respiratory distress, no rales or rhonchi Gastrointestinal: normoactive bowel sounds, No hepatosplenomegally, No guarding , No rebound Genitourinary: no bladder fullness, No [place] in urethra Skin: warm, normal color Musculoskeletal: full muscle strength Neurologic: AAOx3 ICD10 Worksheet Patient Problems: Problems Problem Status Onset Abdominal pain Acute Vomiting Acute
--- NOTE | 2018-11-14 17:01 | ASMTCMCOM ---
CM Note CM Note Notes: Spoke with pt in the room. Pt states she is comfortable discharging home independently and has support from and son. No therapies ordered at this time. Likely discharge tomorrow. CM to follow. D/C Plan: Home independent Date Signed: 11/14/2018 04:58 PM Electronically Signed By:Minerva Dunn
[2018-11-14] MEDS: POLYETHYLENE GLYCOL 3350 17 GM PKT PO SCH (20:58)
[2018-11-14] MEDS: PANTOPRAZOLE SODIUM 40 MG TAB PO SCH (20:59)
[2018-11-15] MEDS: HYDROmorphONE/DILAUDID 2 MG TAB PO PRN ×2 (02:07→11:04)
[2018-11-15] MEDS: PROMETHAZINE HCL 25 MG TAB PO PRN ×2 (02:07→09:49)
[2018-11-15] MEDS: SUCRALFATE 1 GM/10 ML UDCUP PO SCH ×2 (06:27→10:58)
[2018-11-15] MEDS: THYROID 60 MG TAB PO SCH (06:27)
[2018-11-15] MEDS: ONDANSETRON DISINTEGRATING 4 MG TAB PO PRN ×2 (06:29→10:40)
[2018-11-15] MEDS: FLUTICASONE HFA 44 MCG MDI IH SCH (08:36)
[2018-11-15] MEDS ORDERED: PROMETHAZINE HCL 25 MG SUPPR PR PRN (10:43)
--- NOTE | 2018-11-15 10:45 | HOSPPROG ---
Hospitalist Progress Note Assessment/Plan: abdominal pain, N/V - she has had multiple episodes of this over the years - CT/labs without clear etiology, ? splenomegaly -wishes to advance diet dc IV pain meds aggressive bowel regimen MCTD - not currently following with rheum chronic pain - continue chronic methadone but I increased dose splenomegaly- mild, outpt follow u anemia -watch for stability thrombocytopenia, mild -watch for stability, bleeding FULL CODE DVT prophy-lovenox PCP Dr Patty Cobos DISPO > 2 mdnts as still requiring IV pain and antiemetic meds Subjective: some nausea, hasnt eaten Objective: Vital Signs Temp Pulse Resp BP Pulse Ox 36.9 C 68 16 124/78 H 98 11/15/18 08:00 11/15/18 08:41 11/15/18 08:41 11/15/18 08:00 11/15/18 08:41 Laboratory Results 11/14/18 04:55 11/14/18 04:55 11/14/18 11/15/18 11/16/18 05:59 05:59 05:59 Intake Total 1192 1500 Output Total 1400 1000 Balance -208 500 - Physical Exam Constitutional: no apparent distress, appears nourished Eyes: PERRL, anicteric sclera Ears, Nose, Mouth, Throat: moist mucous membranes, hearing normal Cardiovascular: regular rate and rhythym, no murmur, rub, or gallop Respiratory: no respiratory distress, no rales or rhonchi Gastrointestinal: normoactive bowel sounds, soft, non-tender abdomen, No guarding, No rebound, No distension Genitourinary: no bladder fullness, No [place] in urethra Skin: warm, normal color Musculoskeletal: full muscle strength Neurologic: AAOx3 ICD10 Worksheet Patient Problems: Problems Problem Status Onset Abdominal pain Acute Vomiting Acute
[2018-11-15] MEDS: POLYETHYLENE GLYCOL 3350 17 GM PKT PO SCH (10:57)
[2018-11-15] MEDS: SENNOSIDES/DOCUSATE SODIUM TAB PO SCH (10:57)
[2018-11-15] MEDS: ATORVASTATIN CALCIUM 10 MG TAB PO SCH (10:58)
[2018-11-15] MEDS: ENOXAPARIN 40 MG/0.4 ML SYR SC SCH (10:58)
[2018-11-15] MEDS: METHADONE HCL 10 MG TAB PO SCH (10:58)
[2018-11-15] MEDS: ESCITALOPRAM OXALATE 10 MG TAB PO SCH (10:58)
[2018-11-15] MEDS: MAGNESIUM HYDROXIDE 30 ML UDCUP PO SCH (10:58)
[2018-11-15] MEDS: FENOFIBRATE 48 MG TAB PO SCH (10:58)
[2018-11-15] MEDS: PANTOPRAZOLE SODIUM 40 MG TAB PO SCH (10:59)
[2018-11-15 11:49] VITALS: BP 126/84
--- NOTE | 2018-11-15 14:33 | ASMTDCNOTE ---
Case Management Discharge Discharge Order Complete? Answers: Yes Patient to Obtain Answers: Independently Medications Transportation Arranged Answers: Family/Friends Transport will Pick (Date 11/15/2018 12:00 AM & Time) Family Notified Answers: Yes Notes: by pt Discharge Comments Notes: Spoke with pt's RN. Pt to discharge independently with support from and family. No CM needs noted at this time. Date Signed: 11/15/2018 02:33 PM Electronically Signed By:Minerva Dunn
--- NOTE | 2018-11-15 14:38 | GDS ---
[f rep st] DISCHARGE SUMMARY DISCHARGE DIAGNOSES: 1. Abdominal pain of uncertain etiology. 2. Chronic splenomegaly. 3. Mixed connective tissue disorder. 4. Chronic narcotic use. Please see admission history and physical by . The patient presented with abdominal pa in. She had a CT that noted stable splenomegaly, increased size of hypodense adrenal lesion, mild co nstipation. Labs were unremarkable. No evidence of pancreatitis or hepatobiliary disease. The nia ent was managed on some narcotics, transitioned to oral narcotics. Today, she tolerated diet. She w as given Phenergan p.o. and suppositories. Discharged home. She did not have diarrhea suggestive of gastroenteritis and she had negative GI PCR panel. /[id number]/MODL
--- NOTE | 2018-11-15 14:40 | ASMTLACE ---
[place] Comorbidities - select Answers: Coronary Artery Disease all that apply Opioid dependence / Chronic pain Other Notes: IgG deficiency; Hypothyroid ; H LD # of Emergency department Answers: 1-2 visits in the last 6 months Score: 8 Date Signed: 11/15/2018 02:39 PM Electronically Signed By:Minerva Dunn
--- NOTE | 2018-11-15 14:46 | ASDISCHSUM ---
Discharge Information Plan Status:Home with No Needs Medically Cleared to Leave:11/15/2018 Discharge Date:11/15/2018 CM D/C Disposition:Home, Routine, Self-Care ADT D/C Disposition: Projected Discharge Date:11/15/2018 Transportation at D/C:Family Discharge Delay Reason: Follow-Up Date:11/15/2018 Discharge Slot: Final Diagnosis:abd pain, nausea, vomit Placement Information Patient Contact Information Contact Name:YESENIA Relationship:Father Address:[address] City:[place] Alternate Phone: [facility]/Zip Code:[place] [address] Email: Financial Information Financial Class:BCOP Primary Plan Desc:[facility] [employer] PLAN Primary Plan Number:[id number] Secondary Plan Desc: Secondary Plan Number: Assessment Information LACE LACE Comorbidities - select Answers: Coronary Artery Disease all that apply Opioid dependence / Chronic pain Other Notes: IgG deficiency; Hypothyroid ; H LD # of Emergency department Answers: 1-2 visits in the last 6 months Score: 8 Date Signed: 11/15/2018 02:39 PM Electronically Signed By:Minerva Dunn [facility] CM Progress Note CM Note CM Note Notes: Pt is a 43 y/o female admitted for abdominal pain and nausea/vomiting. Pt is on methadone for pain control. Pt will most likely d/c independent when medically stable. No therapies ordered at this time. CM available for changes. Plan: Independent Date Signed: 11/11/2018 10:12 AM Electronically Signed By:LEONARD Gomez [facility] CM Progress Note CM Note CM Note Notes: Spoke with pt in the room. Pt states she is comfortable discharging home independently and has support from and son. No therapies ordered at this time. Likely discharge tomorrow. CM to follow. D/C Plan: Home independent Date Signed: 11/14/2018 04:58 PM Electronically Signed By:Minerva Dunn Case Management Discharge Plan Note Case Management Discharge Discharge Order Complete? Answers: Yes Patient to Obtain Answers: Independently Medications Transportation Arranged Answers: Family/Friends Transport will Pick (Date 11/15/2018 12:00 AM & Time) Family Notified Answers: Yes Notes: by pt Discharge Comments Notes: Spoke with pt's RN. Pt to discharge independently with support from and family. No CM needs noted at this time. Date Signed: 11/15/2018 02:33 PM Electronically Signed By:Minerva Dunn Intervention Information
== END 2018-11-15 14:55 | disposition home or self-care (01) | DRG 392 ==
LOC: F3E 10:52 → OBSVTOIN 11-11 13:53
PROVIDERS: ADMIT Student in an Organized Health Care Education/Training Program; ATTEND Student in an Organized Health Care Education/Training Program
DX: R10.9 Unspecified abdominal pain (principal); R16.1 Splenomegaly, not elsewhere classified; L94.9 Localized connective tissue disorder, unspecified; D80.3 Selective deficiency of immunoglobulin G [IgG] subclasses; I25.10 Atherosclerotic heart disease of native coronary artery without angina pectoris; E03.9 Hypothyroidism, unspecified; J45.909 Unspecified asthma, uncomplicated; E78.5 Hyperlipidemia, unspecified; G89.29 Other chronic pain; D69.6 Thrombocytopenia, unspecified; Z87.891 Personal history of nicotine dependence
CPT/HCPCS: 96374; G0378; J1170; J1200; J1650; J2060; J2270; J2405; J2550; J3010; J3475; Q9967

== ENCOUNTER 2019-01-09 11:40 | Inpatient (IN) | payer OTHER ==
[2019-01-09] MEDS ORDERED: NS 1,000 ML IV ONE ×2 (12:08)
[2019-01-09 12:15] LABS: PLATELET COUNT 145 10^3/uL (150-400)
[2019-01-09] MEDS ORDERED: ONDANSETRON 4 MG/2 ML VIAL IVP ONE ×2 (12:18→14:44)
[2019-01-09] MEDS ORDERED: HYDROmorphONE/DILAUDID 2 MG/ML INJ IVP ONE ×2 (12:18→14:06)
--- NOTE | 2019-01-09 12:20 | EDPHY ---
H & P Stated Complaint: Pt getting over constipation, mirilax x1wk, c/o N/V since AM. Time Seen by Provider: 01/09/19 12:00 HPI/ROS: CHIEF COMPLAINT: Nausea vomiting, history of chronic abdominal pain HISTORY OF PRESENT ILLNESS: The patient presents the ED with uncontrolled nausea and vomiting. She has a history of chronic abdominal pain and has had symptoms intermittently for 30 years of her life. She has been evaluated by multiple specialists. She has been to the [facility]. She does not have an obvious unifying diagnosis. 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 The patient did take oral Zofran at home without improvement of her symptoms. The patient was hospitalized earlier this year for symptoms of abdominal pain and vomiting. During that hospitalization she had CT scan and blood work which were unremarkable. The patient complains of moderate pain. She reports that she had been constipated but has started having normal bowel movements today. She was treating herself with MiraLax over the past week. REVIEW OF SYSTEMS: A comprehensive 10 point review of systems is otherwise negative aside from elements mentioned in the history of present illness. Source: Patient Exam Limitations: No limitations - Personal History Current Tetanus/Diphtheria Vaccine: Yes - Medical/Surgical History Hx Asthma: No Hx Chronic Respiratory Disease: No Hx Diabetes: No Hx Cardiac Disease: Yes Hx Renal Disease: No Hx Cirrhosis: No Hx Alcoholism: No Hx HIV/AIDS: No Hx Splenectomy or Spleen Trauma: No Other PMH: autoimmune disease, CAD, IGG deficient - Social History Smoking Status: Smoker current status UNK - Physical Exam Exam: General Appearance: Alert, no distress Eyes: Pupils equal and round no pallor or injection ENT, Mouth: Mucous membranes moist Respiratory: There are no retractions, lungs are clear to auscultation Cardiovascular: Regular rate and rhythm Gastrointestinal: Minimal epigastric tenderness to palpation, normal bowel sounds, no peritoneal signs Neurological: 5/5 strength noted all 4 extremities Skin: Warm and dry, no rashes Musculoskeletal: Neck is supple nontender Extremities: symmetrical, full range of motion Constitutional: Initial Vital Signs Temperature (C) 36.9 C 01/09/19 11:51 Heart Rate 82 01/09/19 11:51 Respiratory Rate 16 01/09/19 11:51 Blood Pressure 139/83 H 01/09/19 11:51 O2 Sat (%) 96 01/09/19 11:51 O2 Delivery Mode Room Air Allergies/Adverse Reactions: sesame oil [Sesame] Allergy (Intermediate, Verified 01/09/19 11:50) GI upset wheat Allergy (Intermediate, Verified 01/09/19 11:50) GI upset almond Allergy (Mild, Verified 01/09/19 11:50) GI upset amoxicillin trihydrate [From Augmentin] Allergy (Mild, Verified 01/09/19 11:50) Rash corn Allergy (Mild, Verified 01/09/19 11:50) GI upset peanut Allergy (Mild, Verified 01/09/19 11:50) GI upset potassium clavula *RETIRED-05/09/12 [From Augmentin] Allergy (Mild, Verified 11:50) Rash soy Allergy (Mild, Verified 01/09/19 11:50) GI upset droperidol [From Inapsine] Allergy (Unknown, Verified 01/09/19 11:50) Anxiety prochlorperazine edisylate [From Compazine] Allergy (Unknown, Verified 01/09/19 11:50) Anxiety prochlorperazine maleate [From Compazine] Allergy (Unknown, Verified 01/09/19 11 :50) Anxiety trimethobenzamide HCl [From Tigan] Allergy (Unknown, Verified 01/09/19 11:50) Unknown Penicillins Allergy (Verified 01/09/19 11:50) Home Medications: Medication Instructions Recorded Atorvastatin Calcium [Lipitor 10 10 mg PO DAILY 02/12/12 mg (*)] Albuterol [Proventil Inhaler HFA 2 puffs IH Q4H PRN 11/08/18 (*)] Escitalopram Oxalate [Lexapro 10 10 mg PO DAILY 11/08/18 MG] Fenofibrate 54 mg PO DAILY 11/08/18 Fluticasone Hfa 44 Mcg [Flovent 44 2 puffs IH BID 11/08/18 MCG Hfa MDI (*)] Thyroid,Pork [[place] Thyroid] 30 mg PO DAILY 11/08/18 Methadone HCl [Methadone HCl 10 mg 10 - 20 mg PO BID 11/10/18 (*)] Oxymetazoline HCl [Nasal 1 - 2 sprays NS DAILY PRN 11/10/18 Decongestant] Polyethylene Glycol 3350 [Miralax 17 gm PO BID pkt 11/15/18 17 gm (*)] Promethazine HCl [Phenergan 25mg 6.25 - 12.5 mg PO Q6HRS PRN #12 tab 11/15/18 (*)] Promethazine HCl [Phenergan Rectal] 25 mg OK Q6HRS PRN #30 suppr 11/15/18 Medical Decision Making ED Course/Re-evaluation: Patient presents the ED for an exacerbation of acute on chronic abdominal pain and vomiting. The patient's vital signs are stable. I find her abdominal examination to be benign. The her laboratory studies are reassuring. Patient was treated with IV fluids, Dilaudid and anti emetics. She received 2 L of normal saline. The patient had serial examinations in the emergency department over 2 hr period and continues to have ongoing symptoms. She received additional Dilaudid and anti emetics. Given the persistence of her symptoms I do feel she needs to be admitted to the hospital for further evaluation and management. I do not feel that CT imaging is indicated at this point time. Consultation is made with Dr. Linda from the hospitalist service who will admit the patient. Differential Diagnosis: Differential diagnosis considered includes perforation, obstruction, pancreatitis, gastroenteritis, peptic ulcer disease, cyclic vomiting syndrome - Data Points Laboratory Results: Laboratory Results 01/09/19 12:05 01/09/19 12:05 01/09/19 01/09/19 12:05 12:05 WBC 7.55 10^3/uL 10^3/uL (3.80-9.50) RBC 4.63 10^6/uL 10^6/uL (4.18-5.33) Hgb 13.5 g/dL g/dL (12.6-16.3) Hct 38.6 % % (38.0-47.0) MCV 83.4 fL fL (81.5-99.8) MCH 29.2 pg pg (27.9-34.1) MCHC 35.0 g/dL g/dL (32.4-36.7) RDW 12.2 % % (11.5-15.2) Plt Count 145 10^3/uL L 10^3/uL (150-400) MPV 8.9 fL fL (8.7-11.7) Neut % (Auto) 83.7 % H % (39.3-74.2) Lymph % (Auto) 9.7 % L % (15.0-45.0) [place] % (Auto) 3.4 % L % (4.5-13.0) Eos % (Auto) 2.5 % % (0.6-7.6) Baso % (Auto) 0.4 % % (0.3-1.7) Nucleat RBC Rel Count 0.0 % % (0.0-0.2) Absolute Neuts (auto) 6.32 10^3/uL 10^3/uL (1.70-6.50) Absolute Lymphs (auto) 0.73 10^3/uL L 10^3/uL (1.00-3.00) Absolute Monos (auto) 0.26 10^3/uL L 10^3/uL (0.30-0.80) Absolute Eos (auto) 0.19 10^3/uL 10^3/uL (0.03-0.40) Absolute Basos (auto) 0.03 10^3/uL 10^3/uL (0.02-0.10) Absolute Nucleated RBC 0.00 10^3/uL 10^3/uL (0-0.01) Immature Gran % 0.3 % % (0.0-1.1) Immature Gran # 0.02 10^3/uL 10^3/uL (0.00-0.10) Sodium 140 mEq/L mEq/L (135-145) Potassium 4.6 mEq/L mEq/L (3.5-5.2) Chloride 107 mEq/L mEq/L (97-110) Carbon Dioxide 24 mEq/l mEq/l (22-31) Anion Gap 9 mEq/L mEq/L (6-14) BUN 19 mg/dL mg/dL (7-23) Creatinine 0.9 mg/dL mg/dL (0.6-1.0) Estimated GFR > 60 Glucose 101 mg/dL H mg/dL (70-100) Calcium 9.2 mg/dL mg/dL (8.5-10.4) Total Bilirubin 0.5 mg/dL mg/dL (0.1-1.4) Conjugated Bilirubin 0.2 mg/dL mg/dL (0.0-0.5) Unconjugated Bilirubin 0.3 mg/dL mg/dL (0.0-1.1) AST 19 IU/L IU/L (14-46) ALT 31 IU/L IU/L (9-52) Alkaline Phosphatase 64 IU/L IU/L (38-126) Total Protein 6.5 g/dL g/dL (6.3-8.2) Albumin 4.3 g/dL g/dL (3.5-5.0) Lipase 135 IU/L IU/L (23-300) Medications Given: Discontinued Medications Hydromorphone HCl (Dilaudid) 0.5 mg IVP EDNOW ONE Stop: 01/09/19 12:19 Last Admin: 01/09/19 12:23 Dose: 0.5 mg Hydromorphone HCl (Dilaudid) 0.5 mg IVP EDNOW ONE Stop: 01/09/19 14:07 Last Admin: 01/09/19 14:26 Dose: 0.5 mg Sodium Chloride (Ns) 1,000 mls @ 0 mls/hr IV EDNOW ONE; Wide Open PRN Reason: Protocol Stop: 01/09/19 12:09 Last Admin: 01/09/19 12:11 Dose: 1,000 mls Sodium Chloride (Ns) 1,000 mls @ 0 mls/hr IV EDNOW ONE; Wide Open PRN Reason: Protocol Stop: 01/09/19 12:09 Last Admin: 01/09/19 12:12 Dose: 1,000 mls Ondansetron HCl (Zofran) 4 mg IVP EDNOW ONE Stop: 01/09/19 12:19 Last Admin: 01/09/19 12:24 Dose: 4 mg Departure - Departure Disposition: [facility] Inpatient Acute Clinical Impression: Abdominal pain, Vomiting Condition: Fair Referrals: Brittney Cobos MD [Primary Care Provider] - As per Instructions
[2019-01-09] MEDS ORDERED: MAGNESIUM HYDROXIDE 30 ML UDCUP PO PRN (15:27)
[2019-01-09] MEDS ORDERED: BISACODYL 10 MG SUPP PR PRN (15:27)
[2019-01-09] MEDS ORDERED: LACTULOSE 20 GM/30 ML UDCUP PO PRN (15:27)
[2019-01-09] MEDS ORDERED: POLYETHYLENE GLYCOL 3350 17 GM PKT PO PRN (15:27)
[2019-01-09] MEDS ORDERED: ACETAMINOPHEN 325 MG TAB PO PRN (15:27)
[2019-01-09] MEDS ORDERED: LORazepam 2 MG/ML INJ IVP PRN (15:51)
--- NOTE | 2019-01-09 16:10 | ASMTCMCOM ---
CM Note CM Note Notes: Chart reviewed for discharge planning purposes. 43 year old female with history of abdominal pain admitted via ED for nausea and vomiting. Likely no needs at discharge. CM available should needs arise. Plan: TBD Date Signed: 01/09/2019 04:09 PM Electronically Signed By:Radha Olmos RN
[2019-01-09] MEDS: KETOROLAC 30 MG/1 ML SDV IVP PRN (16:35)
[2019-01-09] MEDS: PROMETHAZINE HCL 25 MG/ML INJ IVP PRN ×2 (16:37→19:50)
[2019-01-09] MEDS: NS 1,000 ML IV SCH (16:38)
[2019-01-09] MEDS: CAPSACIAN 0.075% CREAM TP SCH ×2 (16:43→21:11)
--- NOTE | 2019-01-09 16:47 | GHP ---
[f rep st] HISTORY AND PHYSICAL DATE OF ADMISSION: 01/09/2019 CHIEF COMPLAINT: Nausea/vomiting. PRIMARY MORTGAGE OPERATIONS MANAGER: Dr. Mayte Bowers. HPI: A pleasant 43-year-old female with mixed connective tissue disease, chronic pain on methadone, hypothyroidism, presents with nausea, vomiting and crampy abdominal pain for the past week. She was admitted October 2018, at [facility] for similar symptoms. She was seen at [facility] last Wednesday, hydrated and sent home. She did have a small bowel movement today, but her last was over a week ago, which has contributed to these symptoms in the past. She has been taking MiraLAX. She was just prescribed Amitiza, but has not taken. She is on chronic methadone 10 to 20 mg twice daily for arthritic pain. Endorses decreased p.o. intake. No fevers or chills. REVIEW OF SYSTEMS: I completed a 10-point review of systems. PAST MEDICAL HISTORY: Connective tissue disorder, reactive airway disease, chronic pain, hyperlipidemia, hypothyroidism, history of perforated gallbladder , liver abscess. PAST SURGICAL HISTORY: 1. Cholecystectomy secondary to perforated gallbladder. 2. Multiple abdominal washouts for liver abscess. 3. Abdominal mesh placement. 4. Ribs removed. FAMILY HISTORY: Dad healthy. Mother had lupus. SOCIAL HISTORY: Lives in [place]. Uses THC suckers, but decreased this dose to 2 times a day for the past week. No alcohol or tobacco. MEDS: see medication reconciliation ALLERGIES: multiple, see med rec PHYSICAL EXAMINATION: VITAL SIGNS: Temperature 37.1, blood pressure 126/87, heart rate in 60s, respirations 14, 97% on room air. GENERAL: She is no acute distress. Appears fatigued, mildly uncomfortable HEENT: PERRLA. Mildly dry mucous membranes. CV: Regular rate and rhythm. LUNGS: Clear. ABDOMEN: Soft , nondistended, minimal tenderness, "discomfort" with palpation. Quiet bowel sounds. : No Urias. MUSCULOSKELETAL: 5/5 upper and lower extremity strength. NEURO: Cranial nerves 2 through 12 are intact. PSYCH: Alert and oriented x3. LABS: WBC 7, hemoglobin 13, hematocrit 38, platelets 145. Sodium 140, potassium 4.6, chloride 107, carbon dioxide 24, creatinine 0.9, glucose 101. LFTs within normal. Lipase 135. ASSESSMENT/PLAN: 1. Nausea/vomiting/abdominal pain: similar episodes in the past. Check an abdominal x-ray with history of constipation. THC is likely contributing. I counseled on cessation. Supportive care with IV fluids, IV antiemetics and capsaicin cream. Electrolytes are within normal along with lipase. 2. Hypothyroidism: Levothyroxine. 3. Chronic pain: Continue methadone with bowel regimen. 4. THC dependence: Again, counseled on cessation. 5. Diet: Clears, advance as tolerates. 6. Deep venous thrombosis prophylaxis: Low risk. DISPOSITION: Observation admission given intractable nausea, vomiting warranting IV antiemetics and IV fluids. /[id number]/MODL MTDD
[2019-01-09] MEDS: SENNOSIDES/DOCUSATE SODIUM TAB PO SCH (21:11)
[2019-01-09] MEDS ORDERED: ALBUTEROL 60 PUFFS/8 GM MDI IH PRN (22:06)
[2019-01-09] MEDS: ONDANSETRON 4 MG/2 ML VIAL IVP PRN (22:11)
[2019-01-10] MEDS: NS 1,000 ML IV SCH ×2 (02:52→15:21)
[2019-01-10] MEDS: ONDANSETRON 4 MG/2 ML VIAL IVP PRN ×4 (02:52→18:09)
[2019-01-10] MEDS: KETOROLAC 30 MG/1 ML SDV IVP PRN ×4 (02:53→21:11)
[2019-01-10] MEDS: PROMETHAZINE HCL 25 MG/ML INJ IVP PRN ×4 (05:34→21:12)
[2019-01-10] MEDS: METHADONE HCL 10 MG TAB PO SCH ×2 (05:47→20:58)
[2019-01-10] MEDS: FAMOTIDINE 20 MG TAB PO SCH ×2 (09:00→17:02)
[2019-01-10] MEDS: ESCITALOPRAM OXALATE 10 MG TAB PO SCH ×2 (09:00→17:03)
[2019-01-10] MEDS ORDERED: METHADONE HCL 10 MG TAB PO SCH (09:00)
[2019-01-10] MEDS: CAPSACIAN 0.075% CREAM TP SCH ×3 (09:00→20:56)
[2019-01-10] MEDS: SENNOSIDES/DOCUSATE SODIUM TAB PO SCH ×3 (09:01→21:00)
[2019-01-10] MEDS: FLUTICASONE HFA 44 MCG MDI IH SCH ×2 (09:35→21:10)
[2019-01-10] MEDS: THYROID 60 MG TAB PO SCH ×2 (11:17→17:01)
[2019-01-10] MEDS: ATORVASTATIN CALCIUM 10 MG TAB PO SCH ×2 (11:18→17:03)
[2019-01-10] MEDS: FENOFIBRATE 48 MG TAB PO SCH ×2 (11:18→17:02)
[2019-01-10] MEDS ORDERED: NS 1,000 ML IV SCH (14:15)
--- NOTE | 2019-01-10 14:32 | HOSPPROG ---
Hospitalist Progress Note Assessment/Plan: # N/V/abd pain - distended stomach on AXR, possibly d/t poor GI motility d/t MCTD, consider CVS/THC - cont conservative tx - f/u gastric emptying study # MCTD - not on treatment # hx cholecystectomy d/t gangrenous GB, liver abscesses s/p washout # chronic pain on continuous methadone # HLD - lipitor Subjective: still feels very nauseaus and does not feel like she can eat yet Objective: Vital Signs Temp Pulse Resp BP Pulse Ox 37.2 C 67 14 111/72 96 01/10/19 12:00 01/10/19 12:00 01/10/19 12:00 01/10/19 12:00 01/10/19 12:00 01/09/19 01/10/19 01/11/19 05:59 05:59 05:59 Intake Total 5580 Output Total 1200 Balance 4380 chart reviewed AXR personally reviewed - Physical Exam Constitutional: uncomfortable Cardiovascular: regular rate and rhythym, no murmur, rub, or gallop Respiratory: no respiratory distress, no rales or rhonchi, clear to auscultation Gastrointestinal: other (multiple surgical scars; high pitched bowel sounds; soft, mild TTP L sided) ICD10 Worksheet Patient Problems: Problems Problem Status Onset Abdominal pain Acute Vomiting Acute
[2019-01-10] MEDS: PANTOPRAZOLE SODIUM 40 MG VIAL IVP SCH ×2 (15:34→22:20)
--- NOTE | 2019-01-10 18:37 | PDMN ---
Medical Necessity Medical necessity: [facility] [place] M370 Vomiting, A-1 day: 43 yo w/ N/V and abd pain. Initially OBS for workup/tx but pt cont w/ nausea, unable to isabel PO, distended abd, gastric emptying study pending, remains on IVF and IV antiemetics. Meets [facility] [place] IP criteria for Inability to maintain oral hydration (eg, needs IV fluid support) that persists after emergency department and observation care treatment. Hx connective tissue d/o, chronic pain on methadone, rective airway disease, HLD, hypothyroidism, perf gallbladder, liver abscess, w/ multi abd washouts for liver abscess, abd mesh placement rib removal, cholecystectomy. Change to IP status 01/10/19@1423 per MD order.
[2019-01-11] MEDS: METOCLOPRAMIDE 10 MG/2 ML VIAL IVP SCH ×4 (05:41→23:29)
[2019-01-11] MEDS: KETOROLAC 30 MG/1 ML SDV IVP PRN ×3 (05:49→20:05)
[2019-01-11] MEDS: PROMETHAZINE HCL 25 MG/ML INJ IVP PRN ×2 (05:49→13:27)
[2019-01-11 05:54] LABS: PLATELET COUNT 102 10^3/uL (150-400)
[2019-01-11] MEDS: PANTOPRAZOLE SODIUM 40 MG VIAL IVP SCH ×2 (07:59→21:46)
[2019-01-11] MEDS: FAMOTIDINE 20 MG TAB PO SCH (07:59)
[2019-01-11] MEDS: METHADONE HCL 10 MG TAB PO SCH ×2 (07:59→21:45)
[2019-01-11] MEDS: CAPSACIAN 0.075% CREAM TP SCH ×3 (08:58→20:35)
[2019-01-11] MEDS: FENOFIBRATE 48 MG TAB PO SCH (08:58)
[2019-01-11] MEDS: ESCITALOPRAM OXALATE 10 MG TAB PO SCH (08:58)
[2019-01-11] MEDS: ONDANSETRON 4 MG/2 ML VIAL IVP PRN (09:02)
[2019-01-11] MEDS: SENNOSIDES/DOCUSATE SODIUM TAB PO SCH ×2 (09:08→21:45)
[2019-01-11] MEDS: ATORVASTATIN CALCIUM 10 MG TAB PO SCH (09:10)
[2019-01-11] MEDS: FLUTICASONE HFA 44 MCG MDI IH SCH ×2 (09:57→21:37)
--- NOTE | 2019-01-11 10:55 | ASMTCMCOM ---
CM Note CM Note Notes: Pt admitted for vomiting and abdominal pain. She has a connective tissue disease, and has been seen here before for same issues. She is also on Methadone and has been using THC suckers, likely contributing to constipation. Pt is otherwise independent, no therapies ordered, anticipate she will dc home w/support of family when medically stable. CM available should her needs change. DC Plan: Independent Date Signed: 01/11/2019 10:54 AM Electronically Signed By:Mirlande Johns RN
--- NOTE | 2019-01-11 13:07 | HOSPPROG ---
Hospitalist Progress Note Assessment/Plan: # N/V/abd pain - slight improvement today - advance to clears - suspect gastric dysmotility from MCTD, possible improved after reglan, continue # MCTD - not on treatment # hx cholecystectomy d/t gangrenous GB, liver abscesses s/p washout # chronic pain on continuous methadone # HLD - lipitor Subjective: feels slightly less nauseaus, abd pain improved Objective: Vital Signs Temp Pulse Resp BP Pulse Ox 37.1 C 67 16 105/61 99 01/11/19 11:37 01/11/19 11:37 01/11/19 11:37 01/11/19 11:37 01/11/19 11:37 Laboratory Results 01/11/19 05:16 01/10/19 01/11/19 01/12/19 05:59 05:59 05:59 Intake Total 1625 Output Total 800 Balance 825 AXR personally reviewed discussed with Dr Ridley - Physical Exam Constitutional: no apparent distress, appears nourished Cardiovascular: regular rate and rhythym, no murmur, rub, or gallop Respiratory: no respiratory distress, no rales or rhonchi, clear to auscultation Gastrointestinal: normoactive bowel sounds, soft, non-tender abdomen, No distension ICD10 Worksheet Patient Problems: Problems Problem Status Onset Abdominal pain Acute Vomiting Acute
[2019-01-11] MEDS: THYROID 60 MG TAB PO SCH (13:32)
[2019-01-11] MEDS: ONDANSETRON DISINTEGRATING 4 MG TAB PO PRN ×2 (16:11→20:05)
[2019-01-12] MEDS: METOCLOPRAMIDE 10 MG/2 ML VIAL IVP SCH (05:39)
[2019-01-12] MEDS: ESCITALOPRAM OXALATE 10 MG TAB PO SCH (07:26)
[2019-01-12] MEDS: SENNOSIDES/DOCUSATE SODIUM TAB PO SCH (07:26)
[2019-01-12] MEDS: FAMOTIDINE 20 MG TAB PO SCH (07:29)
[2019-01-12] MEDS: PANTOPRAZOLE SODIUM 40 MG VIAL IVP SCH (07:29)
[2019-01-12] MEDS: ONDANSETRON DISINTEGRATING 4 MG TAB PO PRN (07:41)
[2019-01-12] MEDS: FLUTICASONE HFA 44 MCG MDI IH SCH (09:54)
[2019-01-12] MEDS: CAPSACIAN 0.075% CREAM TP SCH (10:07)
[2019-01-12] MEDS: METHADONE HCL 10 MG TAB PO SCH (10:13)
[2019-01-12] MEDS: THYROID 60 MG TAB PO SCH (10:13)
[2019-01-12 11:19] VITALS: BP 128/80
[2019-01-12] MEDS: ATORVASTATIN CALCIUM 10 MG TAB PO SCH (13:14)
[2019-01-12] MEDS: FENOFIBRATE 48 MG TAB PO SCH (13:14)
--- NOTE | 2019-01-12 13:57 | GDS ---
[f rep st] DISCHARGE SUMMARY DIAGNOSES: 1. Nausea, vomiting, abdominal pain. 2. Suspected upper gastrointestinal dysmotility due to mixed connective tissue disease. 3. Mixed connective tissue disease. 4. Chronic pain on continuous methadone. 5. Hyperlipidemia. HOSPITAL COURSE: This is a 43-year-old female, who was admitted here with nausea, vomiting, inabilit y to tolerate p.o. Abdominal x-ray showed significant gastric distention. Gastric emptying studies consistent with slow gastric emptying. Given her mixed connective tissue disease, I think that this is likely GI involvement. I started her on Reglan with very significant improvement quite quickly. I have given her a prescription for Reglan, I told her to take it as needed at the beginning of an ep isode if she can detect one. I gave her warnings about restlessness, as well as extrapyramidal side effects. I recommended that she follow up with her outpatient range management specialist, Dr. Gold, for on going management, consideration of an upper endoscopy. The day of discharge, she tolerated a full me al without nausea. FOLLOWUP: Dr. Gold for ongoing management of her upper GI dysmotility. DISPOSITION: She is discharged home in stable condition. /[id number]/MODL
[2019-01-12] MEDS ORDERED: METOCLOPRAMIDE 10 MG TAB PO SCH (16:00)
== END 2019-01-12 15:09 | disposition home or self-care (01) | DRG 392 ==
LOC: INTOOBSV 14:46 → F3N 15:29 → OBSVTOIN 01-10 14:23 → F3E 01-11 14:02
PROVIDERS: ADMIT Internal Medicine; ATTEND Internal Medicine
DX: K59.8 Other specified functional intestinal disorders (principal); L94.8 Other specified localized connective tissue disorders; D80.3 Selective deficiency of immunoglobulin G [IgG] subclasses; I25.10 Atherosclerotic heart disease of native coronary artery without angina pectoris; E03.9 Hypothyroidism, unspecified; E78.5 Hyperlipidemia, unspecified; G89.29 Other chronic pain
CPT/HCPCS: 96374; A9541; G0378; J1170; J1885; J2405; J2550; J2765